=== PATIENT | female | born 1970 | race Caucasian/White ===

== ENCOUNTER 2017-09-19 11:13 | Day surgery (SDC) | payer OTHER ==
[2017-09-19] MEDS ORDERED: D5 LR 1000 ML 1,000 ML IV ONE (11:22)
[2017-09-19] MEDS ORDERED: DIPRIVAN VIAL 20 ML ONE ×2 (12:24→12:49)
[2017-09-19 15:12] VITALS: BP 123/70
== END 2017-09-19 13:50 | disposition home or self-care (01) ==
LOC: SURG1 11:13
PROVIDERS: ATTEND Internal Medicine Gastroenterology
PROC: 0DJD8ZZ Inspection of Lower Intestinal Tract, Via Natural or Artificial Opening Endoscopic (ICD-10-PCS; principal; 2017-09-19 12:30)
PROC: 0DBN8ZX Excision of Sigmoid Colon, Via Natural or Artificial Opening Endoscopic, Diagnostic (ICD-10-PCS; principal; 2017-09-19 12:30)
DX: Z12.11 Encounter for screening for malignant neoplasm of colon (principal); Z80.0 Family history of malignant neoplasm of digestive organs; K63.5 Polyp of colon; K64.0 First degree hemorrhoids; K59.09 Other constipation; D12.5 Benign neoplasm of sigmoid colon
CPT/HCPCS: A4217; J3490; J7120